=== PATIENT | male | born 1960 | race Caucasian/White ===

== ENCOUNTER → 2017-12-01 | Outpatient (CLI) | payer BC, OTHER ==
[2017-12-01 09:54] LABS: INR 0.97; PARTIAL THROMBOPLASTIN TIME 29.7 SECONDS (25.4-37.6)
== END ==
LOC: M LAB 09:01
DX: R59.0 Localized enlarged lymph nodes (principal)
CPT/HCPCS: 85610

== ENCOUNTER → 2017-12-12 | Outpatient (CLI) | payer BC, OTHER ==
[~2017-12-12] MED LIST: LIDOCAINE 1% MDV 20ML VIAL As Ordered
== END ==
LOC: M RADPRO 09:43
DX: C85.10 Unspecified B-cell lymphoma, unspecified site (principal); R59.0 Localized enlarged lymph nodes
CPT/HCPCS: 38505